=== PATIENT | female | born 1995 | race Caucasian/White ===

== ENCOUNTER 2020-06-14 19:55 | Outpatient (CLI) | payer OTHER ==
[~2020-06-14 19:55] MED LIST: COLACE 100MG C100 MG PO; IBUPROFEN600 MG PO; PNV-SELECT TAB1 EACH PO; TRANDATE 100 M100 MG PO
== END 2020-06-14 21:10 | disposition home or self-care (01) ==
LOC: GENOP 19:55
DX: O99.891 Other specified diseases and conditions complicating pregnancy (principal); R10.9 Unspecified abdominal pain; Z3A.21 21 weeks gestation of pregnancy
CPT/HCPCS: G0463

== ENCOUNTER 2020-06-29 18:18 | Outpatient (CLI) | payer OTHER | END 2020-06-29 20:36 | disposition home or self-care (01) | LOC: GENOP 18:18 | DX: O26.892 Other specified pregnancy related conditions, second trimester (principal); Z3A.24 24 weeks gestation of pregnancy | CPT/HCPCS: 81001; G0463 ==

== ENCOUNTER 2020-07-27 21:29 | Outpatient (CLI) | payer OTHER | END 2020-07-27 22:53 | disposition home or self-care (01) | LOC: GENOP 21:29 | DX: O26.852 Spotting complicating pregnancy, second trimester (principal); O99.891 Other specified diseases and conditions complicating pregnancy; R25.2 Cramp and spasm; R10.9 Unspecified abdominal pain; Z3A.27 27 weeks gestation of pregnancy | CPT/HCPCS: 81001; G0463 ==

== ENCOUNTER 2020-08-30 22:17 | Outpatient (CLI) | payer OTHER | END 2020-08-31 00:14 | disposition home or self-care (01) | LOC: GENOP 22:17 | DX: O62.9 Abnormality of forces of labor, unspecified (principal); Z3A.32 32 weeks gestation of pregnancy | CPT/HCPCS: 81001; 82731; G0463 ==

== ENCOUNTER 2020-09-12 12:11 | Outpatient (CLI) | payer OTHER | END 2020-09-12 13:34 | disposition home or self-care (01) | LOC: GENOP 12:11 | DX: O26.893 Other specified pregnancy related conditions, third trimester (principal); R10.9 Unspecified abdominal pain; O99.891 Other specified diseases and conditions complicating pregnancy; M54.9 Dorsalgia, unspecified; Z3A.32 32 weeks gestation of pregnancy | CPT/HCPCS: 59025; 81001 ==

== ENCOUNTER 2020-09-19 13:02 | Emergency (ER) | payer OTHER ==
[2020-09-19 14:12] LABS: HEMOGLOBIN 11.3 gm/dl (12.3-15.3); RED BLOOD COUNT 3.65 M/UL (4.00-5.10); WHITE BLOOD COUNT 14.4 K/UL (4.5-11.0)
[2020-09-19 14:47] LABS: BUN/CREATININE RATIO 15 (0-10)
== END 2020-09-19 15:55 | disposition home or self-care (01) ==
LOC: ER1 13:02
PROVIDERS: Physician Assistant Medical
DX: O99.891 Other specified diseases and conditions complicating pregnancy (principal); R10.11 Right upper quadrant pain; O99.283 Endocrine, nutritional and metabolic diseases complicating pregnancy, third trimester; E86.0 Dehydration; Z3A.35 35 weeks gestation of pregnancy; Z79.899 Other long term (current) drug therapy
CPT/HCPCS: 80053; 81001; 82150; 83690; 85025; 85652; 86140; 99284

== ENCOUNTER 2020-09-20 23:31 | Outpatient (CLI) | payer OTHER ==
[~2020-09-20 23:31] MED LIST changes: -DOCUSATE SODIU100 MG PO; -FERROUS SULFAT325 M2 PO; -SYNTHROID175 MCG PO
== END 2020-09-21 05:39 | disposition home or self-care (01) ==
LOC: GENOP 23:31
DX: O99.891 Other specified diseases and conditions complicating pregnancy (principal); M54.9 Dorsalgia, unspecified; M25.552 Pain in left hip; M25.551 Pain in right hip; O99.283 Endocrine, nutritional and metabolic diseases complicating pregnancy, third trimester; E07.9 Disorder of thyroid, unspecified; Z87.440 Personal history of urinary (tract) infections; Z85.850 Personal history of malignant neoplasm of thyroid; Z79.899 Other long term (current) drug therapy; Z3A.35 35 weeks gestation of pregnancy
CPT/HCPCS: 59025; 96360; 96361; 96365; 96372; J3105

== ENCOUNTER → 2020-09-20 | Outpatient (CLI) | payer OTHER ==
[~2020-09-20] MED LIST changes: +DOCUSATE SODIU100 MG PO; +FERROUS SULFAT325 M2 PO; +SYNTHROID175 MCG PO
== END ==
LOC: US 09:00
DX: R10.11 Right upper quadrant pain (principal)
CPT/HCPCS: 76705

== ENCOUNTER 2020-09-21 15:52 | Outpatient (CLI) | payer OTHER | END 2020-09-21 18:48 | disposition home or self-care (01) | LOC: GENOP 15:52 | DX: O62.9 Abnormality of forces of labor, unspecified (principal); O99.283 Endocrine, nutritional and metabolic diseases complicating pregnancy, third trimester; O23.43 Unspecified infection of urinary tract in pregnancy, third trimester; Z3A.32 32 weeks gestation of pregnancy | CPT/HCPCS: 83518; 96360; 96361; J7120 ==

== ENCOUNTER 2020-09-28 19:13 | Outpatient (CLI) | payer OTHER | END 2020-09-28 21:19 | disposition home or self-care (01) | LOC: GENOP 19:13 | DX: O99.891 Other specified diseases and conditions complicating pregnancy (principal); M54.9 Dorsalgia, unspecified; O99.283 Endocrine, nutritional and metabolic diseases complicating pregnancy, third trimester; E07.9 Disorder of thyroid, unspecified; Z79.899 Other long term (current) drug therapy; Z3A.36 36 weeks gestation of pregnancy | CPT/HCPCS: 81001; G0463 ==

== ENCOUNTER → 2020-10-02 | Outpatient (CLI) | payer OTHER ==
[~2020-10-02] MED LIST changes: +DOCUSATE SODIU100 MG PO; +FERROUS SULFAT325 M2 PO; +SYNTHROID175 MCG PO
== END ==
LOC: GENOP 14:30
DX: O47.1 False labor at or after 37 completed weeks of gestation (principal); O99.283 Endocrine, nutritional and metabolic diseases complicating pregnancy, third trimester; E07.9 Disorder of thyroid, unspecified; Z85.850 Personal history of malignant neoplasm of thyroid; Z87.440 Personal history of urinary (tract) infections; Z79.899 Other long term (current) drug therapy; Z3A.37 37 weeks gestation of pregnancy
CPT/HCPCS: 81001; 83518; G0463

== ENCOUNTER 2020-10-07 19:59 | Outpatient (CLI) | payer OTHER ==
[~2020-10-07 19:59] MED LIST changes: -DOCUSATE SODIU100 MG PO; -FERROUS SULFAT325 M2 PO; -SYNTHROID175 MCG PO
== END 2020-10-08 00:52 | disposition home or self-care (01) ==
LOC: GENOP 19:59
DX: O47.1 False labor at or after 37 completed weeks of gestation (principal); Z3A.37 37 weeks gestation of pregnancy
CPT/HCPCS: G0463

== ENCOUNTER 2020-10-15 20:37 | Outpatient (CLI) | payer OTHER | END 2020-10-15 22:00 | disposition home or self-care (01) | LOC: GENOP 20:37 | DX: O36.8130 Decreased fetal movements, third trimester, not applicable or unspecified (principal); O99.891 Other specified diseases and conditions complicating pregnancy; R10.9 Unspecified abdominal pain; O99.283 Endocrine, nutritional and metabolic diseases complicating pregnancy, third trimester; E07.9 Disorder of thyroid, unspecified; Z87.440 Personal history of urinary (tract) infections; Z79.899 Other long term (current) drug therapy; Z3A.38 38 weeks gestation of pregnancy | CPT/HCPCS: 59025; 81001 ==

== ENCOUNTER 2020-10-18 05:23 | Inpatient (IN) | payer OTHER ==
[~2020-10-18] VITALS: Ht 170.2 cm; Wt 112.0 kg
[2020-10-18] MEDS ORDERED: SYNTHROID175 MCG PO (09:15)
[2020-10-18] MEDS ORDERED: FERROUS SULFAT325 M2 PO (09:16)
[2020-10-18 09:28] LABS: RED BLOOD COUNT 3.68 M/UL (4.00-5.10); WHITE BLOOD COUNT 9.3 K/UL (4.5-11.0)
[2020-10-18] MEDS ORDERED: DOCUSATE SODIU100 MG PO (12:39)
[2020-10-18] MEDS ORDERED: IBUPROFEN600 MG PO (12:39)
[2020-10-19 04:46] LABS: HEMOGLOBIN 10.1 gm/dl (12.3-15.3)
== END 2020-10-19 15:15 | disposition home or self-care (01) | DRG 807 ==
LOC: OB 05:23
PROVIDERS: ADMIT Obstetrics & Gynecology
PROC: 10E0XZZ Delivery of Products of Conception, External Approach (ICD-10-PCS; principal; 2020-10-18)
PROC: 4A1HX4Z Monitoring of Products of Conception, Cardiac Electrical Activity, External Approach (ICD-10-PCS; 2020-10-18)
PROC: 3E033VJ Introduction of Other Hormone into Peripheral Vein, Percutaneous Approach (ICD-10-PCS; 2020-10-18)
PROC: 10907ZC Drainage of Amniotic Fluid, Therapeutic from Products of Conception, Via Natural or Artificial Opening (ICD-10-PCS; 2020-10-18)
PROC: 0HQ9XZZ Repair Perineum Skin, External Approach (ICD-10-PCS; 2020-10-18)
DX: O70.0 First degree perineal laceration during delivery (principal); Z37.0 Single live birth; Z3A.39 39 weeks gestation of pregnancy; Z20.822 Contact with and (suspected) exposure to COVID-19
CPT/HCPCS: 36415; 51702; 81001; 82800; 85014; 85018; 85025; 90471; 90715; J2795; J3010; J7120